=== PATIENT | male | born 1980 | race Caucasian/White ===

== ENCOUNTER 2019-07-01 17:35 | Outpatient (CLI) | payer BC, SELFPAY ==
--- NOTE | ~2019-07-01 | CT_ITS ---
EXAMINATION: CT abdomen pelvis w con EXAM DATE: 07/01/2019 18:14 INDICATION: Tubulo-- Interstitial nephritis. TECHNIQUE: Spiral CT of the abdomen and pelvis was performed following intravenous injection of 100 m L Omnipaque 350. Axial, coronal and sagittal images were reviewed. The dose-length product (DLP) fo r this examination was 722.63 mGy-cm. The exposure was tailored according to patient size (auto mA e xposure control), and iterative reconstruction (ASIR) was used as additional dose reduction technique . There is no prior study for comparison. FINDINGS: The liver, spleen, adrenal glands and pancreas are unremarkable. Gallbladder is unremarkab le. No biliary obstruction. Portal and splenic veins are patent. Kidneys enhance symmetrically. T here is no hydronephrosis. The prostate is unremarkable. The bladder is unremarkable. There is no retroperitoneal or pelvic lymphadenopathy. Small umbilical fat-containing hernia. The appendix is normal. The stomach and small bowel are unremarkable. There is expected amount of c olonic stool. No free intraperitoneal gas. The heart is normal in size. There are no pericardial or pleural effusions. The lung bases are unremarkable. The bones are unremarkable. IMPRESSION: 1. Small umbilical hernia. Reviewed, dictated and finalized at location A. IMPRESSION: 1. Small umbilical hernia.
== END 2019-07-01 17:36 | disposition home or self-care (01) ==
LOC: ANHIMG 17:45
PROVIDERS: PCP Family Medicine; Visit Provider Family Medicine
DX: N12 Tubulo-interstitial nephritis, not specified as acute or chronic (principal); K42.9 Umbilical hernia without obstruction or gangrene
CPT/HCPCS: 74177; Q9967

== ENCOUNTER 2020-10-26 07:58 | Outpatient (CLI) | payer BC, SELFPAY ==
--- NOTE | ~2020-10-26 | XR_ITS ---
EXAMINATION: XR lumbar spine 2-3V DATE: 10/26/2020 08:22 INDICATION: Lumbar radiculopathy TECHNIQUE: Anteroposterior and lateral views of the lumbar spine, and cone-down lateral view of the l umbosacral junction were obtained. COMPARISON: None. FINDINGS: The vertebral body heights and alignment are normal. There is mild loss of intervertebral d isc space height at L5-S1. Small degenerative osteophytes project from the anterior endplates of mult iple vertebral bodies. There is no fracture. IMPRESSION: 1. Mild lumbar spondylosis without acute findings. Reviewed, dictated and finalized at location A.
--- NOTE | ~2020-10-26 | XR_ITS ---
EXAMINATION: XR hip BI 2V w AP pelvis DATE: 10/26/2020 08:22 INDICATION: Right hip pain TECHNIQUE: AP view of the pelvis and two views of each hip were obtained. COMPARISON: None. FINDINGS: Bone alignment is normal. There is no fracture. Phleboliths are noted in the left pelvis. T he soft tissues are unremarkable. IMPRESSION: 1. No acute osseous abnormality. Reviewed, dictated and finalized at location A.
== END 2020-10-26 07:59 | disposition home or self-care (01) ==
PROVIDERS: PCP Family Medicine; Visit Provider Physician Assistant Medical
DX: M25.551 Pain in right hip (principal); M25.552 Pain in left hip; M47.26 Other spondylosis with radiculopathy, lumbar region
CPT/HCPCS: 72100; 73521

== ENCOUNTER 2021-03-11 09:11 | Outpatient (CLI) | payer BC, SELFPAY ==
--- NOTE | ~2021-03-11 | MR_ITS ---
EXAMINATION: MR shoulder RT wo con DATE: 03/11/2021 10:10 INDICATION: Right shoulder pain and limited range of motion TECHNIQUE: Magnetic resonance imaging (MRI) of the right shoulder was performed without intravenous c ontrast. Sequences included axial PD-weighted FS FSE, coronal oblique PD-weighted FS FSE, coronal obl ique T2-weighted FS FSE, sagittal PD-weighted FS FSE, and sagittal T1-weighted SE. COMPARISON: Right shoulder radiographs dated 12/11/2019 FINDINGS: Coracoacromial arch: The acromion undersurface is curved in morphology (type II). The coracoacromial ligament is normal. M ild acromioclavicular osteoarthritis. Rotator cuff: Mild supraspinatus, infraspinatus and subscapularis tendinopathy without discrete tear. The teres min or tendon is normal. Normal rotator cuff muscle bulk and signal. Biceps tendon, glenoid labrum and glenohumeral cartilage: Long head of the biceps tendon is normal. There is feathery muscular edema extending from at least 5 cm craniocaudally along the proximal myotendinous junction of the long head of the biceps tendon cons istent with a low-grade strain. There is a superior, anterior to posterior tear of the glenoid labrum (SLAP tear) surrounding from the 9:00 position posteriorly to the 1:00 position anteriorly where the re is a normal small subtle blood pool sulcus. There appears be a separate subtle tear along the 4:00 -5:00 position of the anterosuperior glenoid labrum. The inferior glenohumeral labrum is diminutive. Glenohumeral cartilage is normal. Fluid: Physiologic amount of fluid in the glenohumeral joint and biceps tendon sheath. No loose osteochondra l bodies. Mild increased fluid signal in the subacromial/subdeltoid bursa consistent with mild bursit is. Bones: Normal marrow signal with no edema, fracture or abnormal marrow replacing process. IMPRESSION: 1. Labral tears at the superior to posterior superior labrum and at the anteroinferior labrum. 2. Mild subscapularis, supraspinatus and infraspinatus tendinopathy without discrete tear. 3. Low-grade strain at the myotendinous junction of the long head biceps tendon. 4. Mild acromioclavicular osteoarthritis with underlying mild subacromial/subdeltoid bursitis. Reviewed, dictated and finalized at location A. POLISHER IMPRESSION: 1. Labral tears at the superior to posterior superior labrum and at the anteroi nferior labrum. 2. Mild subscapularis, supraspinatus and infraspinatus tendinopathy without dis crete tear. 3. Low-grade strain at the myotendinous junction of the long head biceps tendon . 4. Mild acromioclavicular osteoarthritis with underlying mild subacromial/subde ltoid bursitis.
== END 2021-03-11 09:12 ==
PROVIDERS: PCP Family Medicine; Visit Provider Orthopaedic Surgery
DX: M19.011 Primary osteoarthritis, right shoulder (principal); S43.431A Superior glenoid labrum lesion of right shoulder, initial encounter
CPT/HCPCS: 73221

== ENCOUNTER 2021-09-03 15:21 | Outpatient (CLI) | payer BC, SELFPAY ==
--- NOTE | ~2021-09-03 | MR_ITS ---
EXAMINATION: MR lumbar spine wo con DATE: 09/03/2021 16:18 INDICATION: Lumbar radiculopathy TECHNIQUE: Magnetic resonance imaging (MRI) of the lumbar spine was performed without intravenous con trast. Sequences included sagittal T2-weighted FSE, sagittal T2-weighted FS FSE, sagittal T1-weighted FSE, and axial T2-weighted FSE. COMPARISON: Lumbar spine radiographs dated FINDINGS: Alignment is normal. Vertebral body heights are normal. Normal marrow signal. Mild disc height loss at L3-L4. The conus medullaris terminates at L1. There is normal signal in the caudal spinal cord. Pa ravertebral soft tissues are unremarkable. The following disc levels are specifically discussed: T12-L1 through L2-L3: The disc does not extend beyond the endplate margin. There is mild bilateral fa cet joint osteoarthritis. There is no neural foraminal stenosis. There is no central canal stenosis. L3-L4: Disc is mildly bulging. There is mild to moderate bilateral facet joint osteoarthritis. There is mild bilateral neural foraminal stenosis. There is mild central canal stenosis. L4-L5: Disc is mildly bulging. There is mild bilateral facet joint osteoarthritis. There is mild bila teral neural foraminal stenosis. There is mild central canal stenosis. L5-S1: The disc does not extend beyond the endplate margin. There is mild bilateral facet joint osteo arthritis. There is mild bilateral neural foraminal stenosis. There is no central canal stenosis. IMPRESSION: 1. Mild lumbar spondylosis. Reviewed, dictated and finalized at location A. IMPRESSION: 1. Mild lumbar spondylosis.
== END 2021-09-03 15:22 ==
LOC: MICIMG 15:22
PROVIDERS: PCP Family Medicine; Visit Provider Physician Assistant
DX: M54.16 Radiculopathy, lumbar region (principal); M43.06 Spondylolysis, lumbar region
CPT/HCPCS: 72148

== ENCOUNTER 2021-11-19 09:36 | Outpatient (CLI) | payer BC, SELFPAY ==
--- NOTE | ~2021-11-19 | XR_ITS ---
XR lumbar spine min 4V DATE: 11/19/2021 09:58 INDICATION: Chronic lower back pain for years TECHNIQUE: AP, lateral, coned lateral lumbosacral views. Flexion and extension lateral views. COMPARISON: None FINDINGS: No fracture or spondylolisthesis. The included lower thoracic and lumbar pedicles are intac t. Lumbar and lumbosacral interspaces are relatively well preserved except for minimal loss of height and mild spurring at L3-4. No instability on flexion or extension is evident. The sacroiliac joints are normal. IMPRESSION: Mild degenerative disc disease at L3-4 Reviewed, dictated and finalized at location B.
== END 2021-11-19 09:37 | disposition home or self-care (01) ==
PROVIDERS: PCP Physician Assistant; Visit Provider Neurological Surgery
DX: M47.816 Spondylosis without myelopathy or radiculopathy, lumbar region (principal); M51.36 Other intervertebral disc degeneration, lumbar region
CPT/HCPCS: 72110